=== PATIENT | male | born 1975 | race Hispanic/Latino ===

== ENCOUNTER 2019-04-23 04:32 | Inpatient (IN) | payer OTHER ==
[2019-04-23 05:20] LABS: Basophils % (Auto) 1.3 % (0.0-1.8); Eosinophils % (Auto) 0.7 % (0.0-4.3); Hematocrit 42.3 % (35.5-45.6); Hemoglobin 14.7 gm/dl (11.8-15.2); Lymphocytes # (Auto) 0.9 K/mm3 (1.2-5.4); Lymphocytes % (Auto) 22.3 % (13.4-35.0); Mean Corpuscular HGB Conc 35 % (32-34); Mean Corpuscular Volume 102 fl (84-94); Monocytes # (Auto) 0.5 K/mm3 (0.0-0.8); Monocytes % (Auto) 14.1 % (0.0-7.3); Red Blood Count 4.15 M/mm3 (3.65-5.03); Red Cell Distribution Width 13.1 % (13.2-15.2)
[2019-04-23 05:25] LABS: Platelet Count 85 K/mm3 (140-440)
[2019-04-23] MEDS: ATIVAN IV PRN ×14 (05:35→21:17)
[2019-04-23 05:43] LABS: BUN/Creatinine Ratio 15; Blood Urea Nitrogen 9 mg/dL (9-20); Hemolysis Index 6
[2019-04-23] MEDS ORDERED: ATIVAN IV ONE (06:31)
--- NOTE | 2019-04-23 06:33 | Emergency Department Report ---
ED Seizure HPI - General Chief Complaint: Alcohol Stated Complaint: SEIZURES Time Seen by Provider: 04/23/19 06:20 Source: patient, EMS Mode of arrival: Stretcher Limitations: No Limitations - History of Present Illness Initial Comments: Patient is a 44-year-old male that presents emergency room with complaints of seizure activity. Patient states he is a daily drinker but has been cutting back and his last drink was 4 days ago. Patient states had a seizure in the past due to alcohol withdrawal. She denies chest pain shortness of breath. Patient denies any headache. Patient denies head trauma. Patient states he still felt shaky. MD Complaint: seizure, shaking -: Sudden Description of Episode: loss of consciousness, tonic-clonic movement -: second(s) Witnessed:: No Trauma: No Seizure History: history of withdrawal se Place: home Possible Precipitating Event: alcohol withdrawal Associated Symptoms: confusion. denies: chest pain, cough, diaphoresis, fever/chills, loss of appetite, malaise, rash, shortness of breath, syncope, weakness, tongue injury, shoulder dislocation Treatments Prior to Arrival: benzodiazepines - Related Data Home Medications Medication Instructions Recorded Confirmed Last Taken Unobtainable 04/23/19 04/23/19 Unknown Allergies Allergy/AdvReac Type Severity Reaction Status Date / Time No Known Allergies Allergy Verified 04/23/19 04:56 ED Review of Systems ROS: Stated complaint: SEIZURES Other details as noted in HPI Constitutional: denies: chills, fever Eyes: denies: eye pain, eye discharge, vision change ENT: denies: ear pain, throat pain Respiratory: denies: cough, shortness of breath, wheezing Cardiovascular: denies: chest pain, palpitations Endocrine: no symptoms reported Gastrointestinal: denies: abdominal pain, nausea, diarrhea Genitourinary: denies: urgency, dysuria Musculoskeletal: denies: back pain, joint swelling, arthralgia Skin: denies: rash, lesions Neurological: confusion. denies: headache, weakness, paresthesias Psychiatric: denies: anxiety, depression Hematological/Lymphatic: denies: easy bleeding, easy bruising ED Past Medical Hx - Past Medical History Previous Medical History?: Yes Hx Hypertension: Yes (states that he had a history but no longer needs meds) - Surgical History Past Surgical History?: No - Family History Family history: no significant - Social History Smoking Status: Never Smoker Substance Use Type: Alcohol - Medications Home Medications: Home Medications Medication Instructions Recorded Confirmed Last Taken Type Unobtainable 04/23/19 04/23/19 Unknown History ED Physical Exam - General Limitations: No Limitations General appearance: alert, in no apparent distress, other (patient having tremors of all extremities) - Head Head exam: Present: atraumatic, normocephalic - Eye Eye exam: Present: normal appearance, PERRL Pupils: Present: normal accommodation - ENT ENT exam: Present: mucous membranes moist - Neck Neck exam: Present: normal inspection - Respiratory Respiratory exam: Present: normal lung sounds bilaterally. Absent: respiratory distress - Cardiovascular Cardiovascular Exam: Present: regular rate, normal rhythm. Absent: systolic murmur, diastolic murmur, rubs, gallop - GI/Abdominal GI/Abdominal exam: Present: soft, normal bowel sounds - Rectal Rectal exam: Present: deferred - Extremities Exam Extremities exam: Present: normal inspection - Back Exam Back exam: Present: normal inspection - Neurological Exam Neurological exam: Present: alert, altered (patient is confused. Patient is A&O2.) - Expanded Neurological Exam Expanded Neurological exam: Present: tremor Best Eye Response ([place]): (3) open to voice Best Motor Response ([place]): (6) obeys commands Best Verbal Response ([place]): (4) confused conversation [place] Total: 13 - Psychiatric Psychiatric exam: Present: anxious - Skin Skin exam: Present: warm, dry, intact, normal color. Absent: rash ED Course Vital Signs 04/23/19 04/23/19 04/23/19 04:36 04:42 04:45 Temperature 98.1 F Pulse Rate 114 H 125 H Respiratory 20 22 Rate Blood Pressure 143/105 Blood Pressure 140/98 [Right] O2 Sat by Pulse 96 97 96 Oximetry 04/23/19 04/23/19 04/23/19 05:01 05:15 05:31 Temperature Pulse Rate 112 H 104 H 112 H Respiratory 15 15 21 Rate Blood Pressure 143/100 128/98 128/98 Blood Pressure [Right] O2 Sat by Pulse 93 95 93 Oximetry 04/23/19 04/23/19 04/23/19 05:45 05:49 06:31 Temperature Pulse Rate 123 H 102 H Respiratory 30 H 20 17 Rate Blood Pressure 93/75 112/71 Blood Pressure [Right] O2 Sat by Pulse 97 97 Oximetry 04/23/19 04/23/19 04/23/19 07:01 07:31 08:01 Temperature Pulse Rate Respiratory 15 Rate Blood Pressure 109/72 133/89 106/72 Blood Pressure [Right] O2 Sat by Pulse 97 100 98 Oximetry 04/23/19 04/23/19 04/23/19 08:35 09:01 09:30 Temperature Pulse Rate 97 H 85 Respiratory 15 21 19 Rate Blood Pressure 108/89 150/77 124/89 Blood Pressure [Right] O2 Sat by Pulse 100 94 Oximetry 04/23/19 04/23/19 04/23/19 10:00 10:31 10:40 Temperature Pulse Rate 98 H 124 H 113 H Respiratory 18 28 H 22 Rate Blood Pressure 124/89 137/97 137/97 Blood Pressure [Right] O2 Sat by Pulse 96 96 96 Oximetry 04/23/19 10:52 Temperature Pulse Rate Respiratory Rate Blood Pressure Blood Pressure [Right] O2 Sat by Pulse 95 Oximetry - Reevaluation(s) Reevaluation #1: Initial evaluation done. Patient was given another 1 mg of Ativan. Patient states he is feeling anxious and shaky. Patient also given a banana bag. 04/23/19 06:33 Discussed all results with patient. The patient is confused and is unclear if the patient understands. Patient will be admitted to the hospitalist service. 04/23/19 07:45 - Consultations Consultation #1: Hospitalist consulted for admission. Hospitalist to admit patient. Hospitalist to assume care patient. 04/23/19 07:51 ED Medical Decision Making - Lab Data Result diagrams: 04/23/19 05:09 04/23/19 05:09 - EKG Data -: EKG Interpreted by Me EKG shows normal: sinus rhythm, axis, intervals, QRS complexes, ST-T waves Rate: tachycardia - Medical Decision Making Patient is a 44-year-old male who presents to emergency room with seizure activity. Patient seizures secondary to alcohol withdrawal. Patient has an elevated seawall score and will be admitted to the hospitalist service for further evaluation treatment. Patient was admitted to the ICU. Patient's labs unremarkable. - Differential Diagnosis DTs. Alcohol withdrawal. Seizure. Critical Care Time: Yes Critical care attestation.: If time is entered above; I have spent that time in minutes in the direct care of this critically ill patient, excluding procedure time. Critical Care Time: 35 mniutes ED Disposition Clinical Impression: Seizure-like activity, Delirium tremens, Confusion Alcohol withdrawal seizure Qualifiers: Complication of substance-induced condition: with delirium Qualified Code(s): F10.231 - Alcohol dependence with withdrawal delirium Altered mental status Qualifiers: Altered mental status type: unspecified Qualified Code(s): R41.82 - Altered mental status, unspecified Disposition: DC-09 OP ADMIT IP TO THIS HOSP Is pt being admited?: Yes Does the pt Need Aspirin: No Condition: Critical Time of Disposition: 07:19
[2019-04-23] MEDS ORDERED: VITAMIN B-1 100 MG, FOLVITE 1 MG, INFUVITE 10 ML in NACL 0.9% 1000 ML 1,000 ML IV ONE ×2 (07:00→09:00)
[2019-04-23] MEDS ORDERED: GEODON IM ONE ×2 (08:33→08:40)
--- NOTE | 2019-04-23 08:54 | History and Physical Report ---
History of Present Illness Date of examination: 04/23/19 Chief complaint: Alcohol withdrawal seizure History of present illness: Patient was disoriented and didn't talk to me. History is obtained per ER doctor 44-year-old male with past medical history significant for alcohol abuse, alcohol withdrawal seizure presented to the emergency department complaining of alcohol withdrawal seizure. Patient has been sober for the last 4 days. He drinks alcohol daily. He wants to get treatment for that. By the time I saw him the patient was disoriented he tried to get out of the bed and he doesn't talk to me. She is shaky. Review of system couldn't be obtained because the patient is altered. Past History Past Medical History: hypertension Past Surgical History: Other (Couldn't be obtained because of altered mental status.) Social history: full code Family history: other (Couldn't be obtained because of altered mental status.\) Medications and Allergies Allergies Allergy/AdvReac Type Severity Reaction Status Date / Time No Known Allergies Allergy Verified 04/23/19 04:56 Active Meds: Active Medications Acetaminophen (Tylenol) 650 mg PO Q4H PRN PRN Reason: Pain MILD(1-3)/Fever >100.5/LOPEZ Thiamine HCl 100 mg/ Folic Acid 1 mg/ Multivitamins/Minerals 10 ml/ Sodium Chloride 1,011.2 mls @ 250 mls/hr IV ONCE ONE Stop: 04/23/19 11:02 Thiamine HCl 100 mg/ Folic Acid 1 mg/ Multivitamins/Minerals 10 ml/ Sodium Chloride 1,011.2 mls @ 250 mls/hr IV ONCE ONE Stop: 04/23/19 13:02 Levetiracetam 500 mg/ Dextrose 105 mls @ 400 mls/hr IV Q12HR EVELINA Lorazepam (Ativan) 2 mg IV Q1HR PRN PRN Reason: CIWA-Ar 8-15 Lorazepam (Ativan) 4 mg IV Q1HR PRN PRN Reason: CIWA-Ar 16-25 Last Admin: 04/23/19 05:35 Dose: 4 mg Documented by: Lorazepam (Ativan) 4 mg IV Q15MIN PRN PRN Reason: CIWA-Ar >25 Last Admin: 04/23/19 08:41 Dose: 4 mg Documented by: Ondansetron HCl (Zofran) 4 mg IV Q8H PRN PRN Reason: Nausea And Vomiting Sodium Chloride (Sodium Chloride Flush Syringe 10 Ml) 10 ml IV BID EVELINA Sodium Chloride (Sodium Chloride Flush Syringe 10 Ml) 10 ml IV PRN PRN PRN Reason: LINE FLUSH Review of Systems ROS unobtainable: due to mental status (Couldn't be obtained because of altered mental status.) Exam - Physical Exam Narrative exam: Patient is disoriented, shaky. The patient appeared well nourished and normally developed. Vital signs as documented. Head exam is unremarkable. No scleral icterus . Neck is without jugular venous distension, thyromegaly, or carotid bruits. Lungs are clear to auscultation. Cardiac exam reveals regular rate and Rhythm. Abdominal exam reveals normal bowel sounds, no masses, no organomegaly and no aortic enlargement. Extremities are nonedematous and both femoral and pedal pulses are normal. 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 I didn't see any gross focal neurologic deficit. - Constitutional Vitals: Temp Pulse Resp BP Pulse Ox 98.1 F 102 H 15 133/89 100 04/23/19 04:42 04/23/19 06:31 04/23/19 07:31 04/23/19 07:31 04/23/19 07:31 Results - Labs CBC & Chem 7: 04/23/19 05:09 04/23/19 05:09 Labs: Laboratory Last Values WBC 3.9 K/mm3 (4.5-11.0) L 04/23/19 05:09 RBC 4.15 M/mm3 (3.65-5.03) 04/23/19 05:09 Hgb 14.7 gm/dl (11.8-15.2) 04/23/19 05:09 Hct 42.3 % (35.5-45.6) 04/23/19 05:09 MCV 102 fl (84-94) H 04/23/19 05:09 MCH 36 pg (28-32) H 04/23/19 05:09 MCHC 35 % (32-34) H 04/23/19 05:09 RDW 13.1 % (13.2-15.2) L 04/23/19 05:09 Plt Count 85 K/mm3 (140-440) L 04/23/19 05:09 Lymph % (Auto) 22.3 % (13.4-35.0) 04/23/19 05:09 [place] % (Auto) 14.1 % (0.0-7.3) H 04/23/19 05:09 Eos % (Auto) 0.7 % (0.0-4.3) 04/23/19 05:09 Baso % (Auto) 1.3 % (0.0-1.8) 04/23/19 05:09 Lymph # 0.9 K/mm3 (1.2-5.4) L 04/23/19 05:09 [place] # 0.5 K/mm3 (0.0-0.8) 04/23/19 05:09 Eos # 0.0 K/mm3 (0.0-0.4) 04/23/19 05:09 Baso # 0.0 K/mm3 (0.0-0.1) 04/23/19 05:09 Seg Neutrophils % 61.6 % (40.0-70.0) 04/23/19 05:09 Seg Neutrophils # 2.4 K/mm3 (1.8-7.7) 04/23/19 05:09 Sodium 137 mmol/L (137-145) 04/23/19 05:09 Potassium 3.7 mmol/L (3.6-5.0) 04/23/19 05:09 Chloride 97.3 mmol/L (98-107) L 04/23/19 05:09 Carbon Dioxide 22 mmol/L (22-30) 04/23/19 05:09 21 mmol/L 04/23/19 05:09 BUN 9 mg/dL (9-20) 04/23/19 05:09 0.6 mg/dL (0.8-1.5) L 04/23/19 05:09 Estimated GFR > 60 ml/min 04/23/19 05:09 15 % 04/23/19 05:09 Glucose 88 mg/dL (75-100) 04/23/19 05:09 Calcium 10.0 mg/dL (8.4-10.2) 04/23/19 05:09 Magnesium 1.50 mg/dL (1.7-2.3) L 04/23/19 05:09 Plasma/Serum Alcohol < 0.01 % (0-0.07) 04/23/19 05:09 Assessment and Plan Assessment and plan: Alcohol withdrawal seizure Alcohol withdrawal delirium tremens with high CIWA score Metabolic encephalopathy History of hypertension - Patient will be admitted to ICU and will be treated according to CIWA protocol - Intensity was consulted by ED doctor - Patient on Keppra DVT prophylaxis - On Lovenox Disposition - Admit to ICU The high probability of a clinically significant, sudden or life threatening deterioration of the [neurology] system(s) required my full and direct attention, intervention and personal management. The aggregate critical care time was [32] minutes. This time is in addition to time spent performing reported procedures but includes the following: [x] Data Review and interpretation [x] Patient assessment and monitoring of vital signs [x] Documentation [x] Medication orders and management Advance Directives: Yes VTE prophylaxis?: Chemical Plan of care discussed with patient/family: Yes
[2019-04-23] MEDS ORDERED: TYLENOL PO PRN (09:00)
[2019-04-23] MEDS ORDERED: ZOFRAN IV PRN (09:00)
[2019-04-23] MEDS ORDERED: WATER FOR INJ Sterile (PF) 10 ML ONE (09:12)
[2019-04-23] MEDS: KEPPRA 500 MG in D5W 100 ML IV SCH ×2 (09:45→22:14)
[2019-04-23] MEDS: SODIUM CHLORIDE FLUSH SYRINGE 10 ML IV SCH ×2 (09:45→21:06)
[2019-04-23] MEDS ORDERED: LOVENOX SUB-Q SCH (22:00)
[2019-04-24] MEDS: SODIUM CHLORIDE FLUSH SYRINGE 10 ML IV PRN ×2 (04:14→05:40)
[2019-04-24] MEDS: ATIVAN IV PRN ×4 (04:14→21:59)
[2019-04-24 06:40] LABS: Basophils % (Auto) 0.9 % (0.0-1.8); Eosinophils # (Auto) 0.1 K/mm3 (0.0-0.4); Eosinophils % (Auto) 1.3 % (0.0-4.3); Hematocrit 42.4 % (35.5-45.6); Hemoglobin 14.5 gm/dl (11.8-15.2); Lymphocytes # (Auto) 0.6 K/mm3 (1.2-5.4); Lymphocytes % (Auto) 11.9 % (13.4-35.0); Mean Corpuscular HGB Conc 34 % (32-34); Mean Corpuscular Volume 104 fl (84-94); Monocytes # (Auto) 0.6 K/mm3 (0.0-0.8); Monocytes % (Auto) 11.1 % (0.0-7.3); Red Blood Count 4.08 M/mm3 (3.65-5.03); Red Cell Distribution Width 12.9 % (13.2-15.2)
[2019-04-24 06:44] LABS: Platelet Count 81 K/mm3 (140-440)
[2019-04-24 06:57] LABS: Alanine Aminotransferase 80 units/L (7-56); Albumin 4.1 g/dL (3.9-5); BUN/Creatinine Ratio 18; Blood Urea Nitrogen 9 mg/dL (9-20); Calcium 9.3 mg/dL (8.4-10.2); Hemolysis Index 5
[2019-04-24] MEDS: KEPPRA 500 MG in D5W 100 ML IV SCH ×2 (10:27→21:59)
[2019-04-24] MEDS: SODIUM CHLORIDE FLUSH SYRINGE 10 ML IV SCH ×2 (10:27→22:00)
--- NOTE | 2019-04-24 11:06 | Consultation ---
History of Present Illness - Reason for Consult Consult date: 04/24/19 Delirium [place]emens with concern for Seizure Requesting physician: TODD MORFIN - History of Present Illness 44 y/o male with known ETOH abuse comes in looking for detox. Had been sober per report from him 4 days prior to admit. Concern for Seizures so treated with Keppra and placed on CIWA protocol. No seizure activity tonight or this am. Last CIWA documented at 6. Past History Past Medical History: hypertension, other (ETOH abuse) Social history: alcohol abuse, full code Medications and Allergies Allergies Allergy/AdvReac Type Severity Reaction Status Date / Time No Known Allergies Allergy Verified 04/23/19 04:56 Home Medications Medication Instructions Recorded Confirmed Last Taken Type Unobtainable 04/23/19 04/24/19 Unknown History No Known Home Medications [No 04/24/19 04/24/19 Unknown History Reported Home Medications] Active Meds: Active Medications Acetaminophen (Tylenol) 650 mg PO Q4H PRN PRN Reason: Pain MILD(1-3)/Fever >100.5/LOPEZ Levetiracetam 500 mg/ Dextrose 105 mls @ 400 mls/hr IV Q12HR EVELINA Last Admin: 04/24/19 10:27 Dose: 400 mls/hr Documented by: Lorazepam (Ativan) 2 mg IV Q1HR PRN PRN Reason: CIWA-Ar 8-15 Last Admin: 04/24/19 05:39 Dose: 2 mg Documented by: Lorazepam (Ativan) 4 mg IV Q1HR PRN PRN Reason: CIWA-Ar 16-25 Last Admin: 04/23/19 19:59 Dose: 4 mg Documented by: Lorazepam (Ativan) 4 mg IV Q15MIN PRN PRN Reason: CIWA-Ar >25 Last Admin: 04/23/19 17:20 Dose: 4 mg Documented by: Ondansetron HCl (Zofran) 4 mg IV Q8H PRN PRN Reason: Nausea And Vomiting Sodium Chloride (Sodium Chloride Flush Syringe 10 Ml) 10 ml IV BID EVELINA Last Admin: 04/24/19 10:27 Dose: 10 ml Documented by: Sodium Chloride (Sodium Chloride Flush Syringe 10 Ml) 10 ml IV PRN PRN PRN Reason: LINE FLUSH Last Admin: 04/24/19 05:40 Dose: 10 ml Documented by: Review of Systems All systems: negative Exam - Constitutional Vitals: Temp Pulse Resp BP Pulse Ox 98.9 F 108 H 16 134/83 96 04/24/19 08:00 04/24/19 10:11 04/24/19 10:11 04/24/19 10:11 04/24/19 10:11 General appearance: Present: no acute distress, well-nourished - EENT Eyes: Present: PERRL, EOM intact ENT: hearing intact, clear oral mucosa - Neck Neck: Present: supple, normal ROM - Respiratory Respiratory effort: normal Respiratory: bilateral: CTA - Cardiovascular Rhythm: regular (sinus tachy) - Extremities Extremities: no ischemia - Abdominal General gastrointestinal: Present: soft, non-tender, normal bowel sounds - Musculoskeletal Musculoskeletal: other (generalized tremors.) Results - Labs CBC & Chem 7: 04/24/19 05:08 04/24/19 05:08 Labs: Abnormal lab results 04/24/19 04/24/19 Range/Units 05:08 05:08 MCV 104 H (84-94) fl MCH 36 H (28-32) pg RDW 12.9 L (13.2-15.2) % Plt Count 81 L (140-440) K/mm3 Lymph % (Auto) 11.9 L (13.4-35.0) % [place] % (Auto) 11.1 H (0.0-7.3) % Lymph # 0.6 L (1.2-5.4) K/mm3 Seg Neutrophils % 74.8 H (40.0-70.0) % Creatinine 0.5 L (0.8-1.5) mg/dL Glucose 62 L (75-100) mg/dL Total Bilirubin 2.00 H (0.1-1.2) mg/dL AST 157 H (5-40) units/L ALT 80 H (7-56) units/L Assessment and Plan 44 y/o male with ETOH abuse concern for DT's and seizures. 1. sTable from a critical care standpoint for transfer 2. Would continue CIWA protocol and seizure prophylactic therapy. 3. Will sign of once out of unit.
--- NOTE | 2019-04-24 15:53 | Progress Note ---
Assessment and Plan Assessment and plan: Alcohol withdrawal seizure Alcohol withdrawal delirium tremens with high CIWA score Metabolic encephalopathy History of hypertension - Patient was admitted to ICU and will be treated according to CIWA protocol, currently patient is stable for floor - Patient on Keppra DVT prophylaxis - On Lovenox Disposition - Transfer to the floor History Interval history: Patient was seen and evaluated this morning, patient didn't talked to me. patient was given benzo and was sleepy. Hospitalist Physical - Physical exam Narrative exam: Patient is disoriented, shaky. The patient appeared well nourished and normally developed. Vital signs as documented. Head exam is unremarkable. No scleral icterus . Neck is without jugular venous distension, thyromegaly, or carotid bruits. Lungs are clear to auscultation. Cardiac exam reveals regular rate and Rhythm. Abdominal exam reveals normal bowel sounds, no masses, no organomegaly and no aortic enlargement. Extremities are nonedematous and both femoral and pedal pulses are normal. 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 I didn't see any gross focal neurologic deficit. - Constitutional Vitals: Temp Pulse Resp BP Pulse Ox 98.9 F 103 H 16 117/85 98 04/24/19 12:00 04/24/19 13:00 04/24/19 13:00 04/24/19 13:00 04/24/19 13:00 General appearance: Present: no acute distress, well-nourished Results - Labs CBC & Chem 7: 04/24/19 05:08 04/24/19 05:08 Labs: Laboratory Last Values WBC 5.1 K/mm3 (4.5-11.0) 04/24/19 05:08 RBC 4.08 M/mm3 (3.65-5.03) 04/24/19 05:08 Hgb 14.5 gm/dl (11.8-15.2) 04/24/19 05:08 Hct 42.4 % (35.5-45.6) 04/24/19 05:08 MCV 104 fl (84-94) H 04/24/19 05:08 MCH 36 pg (28-32) H 04/24/19 05:08 MCHC 34 % (32-34) 04/24/19 05:08 RDW 12.9 % (13.2-15.2) L 04/24/19 05:08 Plt Count 81 K/mm3 (140-440) L 04/24/19 05:08 Lymph % (Auto) 11.9 % (13.4-35.0) L 04/24/19 05:08 [place] % (Auto) 11.1 % (0.0-7.3) H 04/24/19 05:08 Eos % (Auto) 1.3 % (0.0-4.3) 04/24/19 05:08 Baso % (Auto) 0.9 % (0.0-1.8) 04/24/19 05:08 Lymph # 0.6 K/mm3 (1.2-5.4) L 04/24/19 05:08 [place] # 0.6 K/mm3 (0.0-0.8) 04/24/19 05:08 Eos # 0.1 K/mm3 (0.0-0.4) 04/24/19 05:08 Baso # 0.0 K/mm3 (0.0-0.1) 04/24/19 05:08 Seg Neutrophils % 74.8 % (40.0-70.0) H 04/24/19 05:08 Seg Neutrophils # 3.8 K/mm3 (1.8-7.7) 04/24/19 05:08 Sodium 141 mmol/L (137-145) 04/24/19 05:08 Potassium 3.7 mmol/L (3.6-5.0) 04/24/19 05:08 Chloride 103.7 mmol/L (98-107) 04/24/19 05:08 Carbon Dioxide 22 mmol/L (22-30) 04/24/19 05:08 19 mmol/L 04/24/19 05:08 BUN 9 mg/dL (9-20) 04/24/19 05:08 0.5 mg/dL (0.8-1.5) L 04/24/19 05:08 Estimated GFR > 60 ml/min 04/24/19 05:08 18 % 04/24/19 05:08 Glucose 62 mg/dL (75-100) L 04/24/19 05:08 Calcium 9.3 mg/dL (8.4-10.2) 04/24/19 05:08 Phosphorus 3.70 mg/dL (2.5-4.5) 04/24/19 05:08 Magnesium 1.80 mg/dL (1.7-2.3) 04/24/19 05:08 2.00 mg/dL (0.1-1.2) H 04/24/19 05:08 AST 157 units/L (5-40) H 04/24/19 05:08 ALT 80 units/L (7-56) H 04/24/19 05:08 54 units/L (35-129) 04/24/19 05:08 7.4 g/dL (6.3-8.2) 04/24/19 05:08 4.1 g/dL (3.9-5) 04/24/19 05:08 1.2 % 04/24/19 05:08 Plasma/Serum Alcohol < 0.01 % (0-0.07) 04/23/19 05:09 Active Medications - Current Medications Current Medications: Generic Name Dose Route Start Last Admin Trade Name Freq PRN Reason Stop Dose Admin Acetaminophen 650 mg 04/23/19 09:00 Tylenol PO Q4H PRN Pain MILD(1-3)/Fever >100.5/LOPEZ Levetiracetam 500 mg/ Dextrose 105 mls @ 400 mls/hr 04/23/19 10:00 04/24/19 10:27 IV 400 mls/hr Q12HR EVELINA Administration Lorazepam 2 mg 04/23/19 05:13 04/24/19 13:12 Ativan IV 2 mg Q1HR PRN Administration CIWA-Ar 8-15 Lorazepam 4 mg 04/23/19 05:13 04/23/19 19:59 Ativan IV 4 mg Q1HR PRN Administration CIWA-Ar 16-25 Lorazepam 4 mg 04/23/19 05:13 04/23/19 17:20 Ativan IV 4 mg Q15MIN PRN Administration CIWA-Ar >25 Ondansetron HCl 4 mg 04/23/19 09:00 Zofran IV Q8H PRN Nausea And Vomiting Sodium Chloride 10 ml 04/23/19 10:00 04/24/19 10:27 Sodium Chloride Flush Syringe 10 Ml IV 10 ml BID EVELINA Administration Sodium Chloride 10 ml 04/23/19 09:00 04/24/19 05:40 Sodium Chloride Flush Syringe 10 Ml IV 10 ml PRN PRN Administration LINE FLUSH
[2019-04-25 07:11] LABS: BUN/Creatinine Ratio 14; Blood Urea Nitrogen 7 mg/dL (9-20); Calcium 9.5 mg/dL (8.4-10.2); Hemolysis Index 3
[2019-04-25] MEDS ORDERED: K-DUR PO ONE (08:00)
[2019-04-25] MEDS ORDERED: LIBRIUM PO PRN (09:34)
[2019-04-25] MEDS ORDERED: ATIVAN PO PRN (09:35)
[2019-04-25] MEDS: SODIUM CHLORIDE FLUSH SYRINGE 10 ML IV SCH ×2 (09:41→21:37)
[2019-04-25] MEDS: ATIVAN PO PRN ×2 (10:26→17:25)
--- NOTE | 2019-04-25 13:54 | Progress Note ---
Assessment and Plan Assessment and plan: Alcohol withdrawal seizure - No seizure repeated after admission Alcohol withdrawal delirium tremens with high CIWA score - Patient is on by mouth librium and ativan Metabolic encephalopathy History of hypertension -Is being managed according to [facility] protocol, I changed his medications to oral - DC Keppra Hypokalemia - Repleted - We'll check BMP tomorrow DVT prophylaxis - On Lovenox Disposition -Possible discharge tomorrow. History Interval history: Patient was seen and evaluated this morning, patient was alert and oriented. Patient has tremer in his hands. No seizure overnight. Hospitalist Physical - Physical exam Narrative exam: Patient not in cardiopulmonary distress. The patient appeared well nourished and normally developed. Vital signs as documented. Head exam is unremarkable. No scleral icterus . Neck is without jugular venous distension, thyromegaly, or carotid bruits. Lungs are clear to auscultation. Cardiac exam reveals regular rate and Rhythm. Abdominal exam reveals normal bowel sounds, no masses, no organomegaly and no aortic enlargement. Extremities are nonedematous and both femoral and pedal pulses are normal. [employer]: She is alert and oriented 3. Patient is shaking of his hands. - Constitutional Vitals: Temp Pulse Resp BP Pulse Ox 98.0 F 114 H 20 120/88 94 04/25/19 11:59 04/25/19 11:59 04/25/19 11:59 04/25/19 11:59 04/25/19 11:59 General appearance: Present: no acute distress, well-nourished Results - Labs CBC & Chem 7: 04/24/19 05:08 04/25/19 05:55 Labs: Laboratory Last Values WBC 5.1 K/mm3 (4.5-11.0) 04/24/19 05:08 RBC 4.08 M/mm3 (3.65-5.03) 04/24/19 05:08 Hgb 14.5 gm/dl (11.8-15.2) 04/24/19 05:08 Hct 42.4 % (35.5-45.6) 04/24/19 05:08 MCV 104 fl (84-94) H 04/24/19 05:08 MCH 36 pg (28-32) H 04/24/19 05:08 MCHC 34 % (32-34) 04/24/19 05:08 RDW 12.9 % (13.2-15.2) L 04/24/19 05:08 Plt Count 81 K/mm3 (140-440) L 04/24/19 05:08 Lymph % (Auto) 11.9 % (13.4-35.0) L 04/24/19 05:08 [place] % (Auto) 11.1 % (0.0-7.3) H 04/24/19 05:08 Eos % (Auto) 1.3 % (0.0-4.3) 04/24/19 05:08 Baso % (Auto) 0.9 % (0.0-1.8) 04/24/19 05:08 Lymph # 0.6 K/mm3 (1.2-5.4) L 04/24/19 05:08 [place] # 0.6 K/mm3 (0.0-0.8) 04/24/19 05:08 Eos # 0.1 K/mm3 (0.0-0.4) 04/24/19 05:08 Baso # 0.0 K/mm3 (0.0-0.1) 04/24/19 05:08 Seg Neutrophils % 74.8 % (40.0-70.0) H 04/24/19 05:08 Seg Neutrophils # 3.8 K/mm3 (1.8-7.7) 04/24/19 05:08 Sodium 138 mmol/L (137-145) 04/25/19 05:55 Potassium 3.2 mmol/L (3.6-5.0) L 04/25/19 05:55 Chloride 100.0 mmol/L (98-107) 04/25/19 05:55 Carbon Dioxide 23 mmol/L (22-30) 04/25/19 05:55 18 mmol/L 04/25/19 05:55 BUN 7 mg/dL (9-20) L 04/25/19 05:55 0.5 mg/dL (0.8-1.5) L 04/25/19 05:55 Estimated GFR > 60 ml/min 04/25/19 05:55 14 % 04/25/19 05:55 Glucose 82 mg/dL (75-100) 04/25/19 05:55 Calcium 9.5 mg/dL (8.4-10.2) 04/25/19 05:55 Phosphorus 3.70 mg/dL (2.5-4.5) 04/24/19 05:08 Magnesium 1.80 mg/dL (1.7-2.3) 04/24/19 05:08 2.00 mg/dL (0.1-1.2) H 04/24/19 05:08 AST 157 units/L (5-40) H 04/24/19 05:08 ALT 80 units/L (7-56) H 04/24/19 05:08 54 units/L (35-129) 04/24/19 05:08 7.4 g/dL (6.3-8.2) 04/24/19 05:08 4.1 g/dL (3.9-5) 04/24/19 05:08 1.2 % 04/24/19 05:08 Plasma/Serum Alcohol < 0.01 % (0-0.07) 04/23/19 05:09 Active Medications - Current Medications Current Medications: Generic Name Dose Route Start Last Admin Trade Name Freq PRN Reason Stop Dose Admin Acetaminophen 650 mg 04/23/19 09:00 Tylenol PO Q4H PRN Pain MILD(1-3)/Fever >100.5/LOPEZ Chlordiazepoxide HCl 25 mg 04/25/19 09:34 Librium PO Q8H PRN Anxiety Lorazepam 1 mg 04/25/19 09:35 Ativan PO Q4H PRN Agitation Lorazepam 2 mg 04/25/19 09:37 04/25/19 10:26 Ativan PO 2 mg Q4H PRN Administration Agitation Ondansetron HCl 4 mg 04/23/19 09:00 Zofran IV Q8H PRN Nausea And Vomiting Sodium Chloride 10 ml 04/23/19 10:00 04/25/19 09:41 Sodium Chloride Flush Syringe 10 Ml IV 10 ml BID EVELINA Administration Sodium Chloride 10 ml 04/23/19 09:00 04/24/19 05:40 Sodium Chloride Flush Syringe 10 Ml IV 10 ml PRN PRN Administration LINE FLUSH
[2019-04-26 06:54] LABS: BUN/Creatinine Ratio 13; Blood Urea Nitrogen 8 mg/dL (9-20); Calcium 9.9 mg/dL (8.4-10.2); Hemolysis Index 7
[2019-04-26] MEDS: SODIUM CHLORIDE FLUSH SYRINGE 10 ML IV SCH (10:00)
--- NOTE | 2019-04-26 13:04 | Discharge Summary ---
Providers - Providers Date of Admission: 04/23/19 07:15 Attending physician: KENYATTA CORDERO MD Primary care physician: REJI KAPADIA MD Hospitalization Condition: Critical Hospital course: Alcohol withdrawal seizure History of present illness: Patient was disoriented and didn't talk to me. History is obtained per ER doctor 44-year-old male with past medical history significant for alcohol abuse, alcohol withdrawal seizure presented to the emergency department complaining of alcohol withdrawal seizure. He was treated with CIWA protocol, received Ativan and Librium. His electrolytes were repleted. Patient improved and was discharged home. Past History Past Medical History: hypertension Diagnoses Alcohol withdrawal seizure - Alcohol withdrawal delirium tremens with high CIWA score Acute Metabolic encephalopathy Hypokalemia Disposition: - TO HOME OR SELFCARE Time spent for discharge: 33 mins Core Measure Documentation - Palliative Care Palliative Care/ Comfort Measures: Not Applicable - Core Measures Any of the following diagnoses?: none Exam - Constitutional Vitals: Temp Pulse Resp BP Pulse Ox 97.7 F 79 16 138/111 97 04/26/19 11:33 04/26/19 11:33 04/26/19 11:33 04/26/19 11:33 04/26/19 11:33 General appearance: Present: no acute distress, well-nourished - EENT Eyes: Present: PERRL ENT: hearing intact, clear oral mucosa - Neck Neck: Present: supple, normal ROM - Respiratory Respiratory effort: normal Respiratory: bilateral: CTA - Cardiovascular Heart Sounds: Present: S1 & S2. Absent: rub, click - Extremities Extremities: pulses symmetrical, No edema Peripheral Pulses: within normal limits - Abdominal General gastrointestinal: Present: soft, non-tender, non-distended, normal bowel sounds Male genitourinary: Present: normal - Integumentary Integumentary: Present: clear, warm, dry - Musculoskeletal Musculoskeletal: gait normal, strength equal bilaterally - Psychiatric Psychiatric: appropriate mood/affect, intact judgment & insight - Neurologic Neurologic: CNII-XII intact, moves all extremities Plan Follow up with: REJI PAYAN MD [Primary Care Provider] - 3-5 Days Prescriptions: Folic Acid [Folvite] 1 mg PO QDAY #30 tablet Thiamine [Vitamin B-1] 100 mg PO QDAY #30 tablet
[2019-04-26 18:21] VITALS: BP 139/104
== END 2019-04-26 17:00 | disposition home or self-care (01) | DRG 101 ==
LOC: ED 04:32 → CC1 07:15 → 3A 04-24 13:40
PROVIDERS: ADMIT Internal Medicine; ATTEND Internal Medicine
DX: G40.89 Other seizures (principal); F10.188 Alcohol abuse with other alcohol-induced disorder; I10 Essential (primary) hypertension; Y90.9 Presence of alcohol in blood, level not specified; E87.6 Hypokalemia
CPT/HCPCS: 36415; 80048; 80053; 80320; 83735; 84100; 85025; 93005; 93010; G0378; G0480; J1650; J1953; J2060; J3411; J3486; J7030